=== PATIENT | female | born 1990 | race Caucasian/White ===

== ENCOUNTER 2019-08-11 19:44 | Emergency (ER) | payer BC ==
[~2019-08-11] VITALS: Ht 149.9 cm; Wt 51.3 kg
[2019-08-11 19:55] VITALS: BP 137/78
--- NOTE | 2019-08-11 19:55 | NUR ---
TO BED #07 AMBULATORY
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
--- NOTE | 2019-08-11 20:08 | NUR ---
PT TO ER BED 7
--- NOTE | 2019-08-11 20:37 | NUR ---
PA AT BEDSIDE EVALUATING PATIENT.
--- NOTE | 2019-08-11 21:24 | NUR ---
PT TAKEN TO RAD
--- NOTE | 2019-08-11 21:34 | NUR ---
PT RETURN FROM RAD
[2019-08-11] MEDS ORDERED: KETOROLAC 30 MG/ML VIAL IM ONE (22:15)
[2019-08-11 22:27] VITALS: BP 137/78
--- NOTE | 2019-08-13 16:39 | NUR ---
LATE ENTRY--PT CAME TO [facility]ING [facility] STATING SHE DID NOT HAVE HER RX FOR NAPROXEN. SPOKE WITH HERLINDA TOLENTINO; SECOND PRESCRIPTION FOR NAPROXEN WAS GIVEN. PT VERBALIZED UNDERSTANDING THAT WE ARE UNABLE TO REPRINT ANY MORE RX FROM THIS POINT FORWARD.
== END 2019-08-11 22:27 | disposition home or self-care (01) ==
LOC: MED 19:44
DX: G89.21 Chronic pain due to trauma (principal); M54.5 Low back pain
CPT/HCPCS: 72100; 81002; 81025; 96372; 99283; J1885